=== PATIENT | female | born 1995 | race Hispanic/Latino ===

== ENCOUNTER 2023-08-28 21:50 | Inpatient (IN) | payer OTHER ==
[~2023-08-28] VITALS: Ht 162.6 cm; Wt 85.8 kg
[2023-08-28 22:13] VITALS: BP 119/84
[2023-08-28] MEDS ORDERED: PRENTAB9 PO (23:06)
[2023-08-28] MEDS ORDERED: TUMS500C PO (23:07)
[2023-08-28] MEDS ORDERED: HOME MED LIST COMPLETE! XX SCH (23:10)
[2023-08-28] MEDS ORDERED: OXYTOCIN DRIP 30 UNITS in IV 1 EA IV PRN ×4 (23:20)
[2023-08-28] MEDS ORDERED: METHYLERGONOVINE MALEATE 0.2MG/ML 1ML VIAL IM PRN (23:20)
[2023-08-28] MEDS ORDERED: TRANEXAMIC ACID INJection 1,000 MG in NS 100 ML IV PRN (23:20)
[2023-08-28] MEDS ORDERED: CARBOPROST TROMETHAMINE 250 MCG/ML AMP IM PRN (23:20)
[2023-08-28] MEDS ORDERED: LIDOCAINE 1% MDV 20ML VIAL INFIL PRN (23:20)
[2023-08-29] VITALS (33 sets, daily range): BP systolic 107–145; BP diastolic 60–95
[2023-08-29] MEDS ORDERED: miSOPROStol 50MCG 1/2 TABLET PO SCH
[2023-08-29 00:21] LABS: HEMATOCRIT 38.8 % (36.0-47.0); HEMOGLOBIN 12.8 g/dl (12.0-15.5); MEAN CORPUSCULAR HEMOGLOBIN 28.6 pg (27.0-33.0); MEAN CORPUSCULAR VOLUME 86.8 fl (80.0-96.0); PLATELET COUNT, AUTOMATED 267 10^3/uL (150-450); RED BLOOD COUNT 4.47 10^6/uL (4.00-5.40); WHITE BLOOD COUNT 6.6 10^3/uL (4.0-10.0)
[2023-08-29] MEDS: LR 1,000 ML IV SCH ×3 (00:52→14:22)
[2023-08-29] MEDS ORDERED: CALCIUM CARBONATE 500 MG CHEW U/D PO PRN (02:05)
[2023-08-29] MEDS ORDERED: OXYTOCIN DRIP 30 UNITS in IV 1 EA IV SCH (08:00)
[2023-08-29] MEDS ORDERED: ONDANSETRON 4MG 2ML VIAL IV PRN (13:35)
[2023-08-29] MEDS ORDERED: LR 500 ML IV PRN (13:35)
[2023-08-29] MEDS ORDERED: FENTANYL 2MCG/ML ROPIVACAINE 0.2% IN 0.9% NACL 100ML IVBAG As Ordered ONE (13:35)
[2023-08-29] MEDS ORDERED: ePHEDrine SULFATE 25 MG/5 ML(5MG/ML) SYRINGE IVP PRN (13:35)
[2023-08-29] MEDS ORDERED: FENTANYL/ROPIVACAINE/NACL BAG 100 ML EPIDURAL SCH (13:35)
[2023-08-29] MEDS ORDERED: diphenhydrAMINE 50MG/ML VIAL IV PRN (13:35)
[2023-08-29] MEDS ORDERED: NALOXONE INJ 0.4MG/1ML VIAL IV PRN (13:35)
[2023-08-29] MEDS ORDERED: EPIDURAL/PCA KEYS XX PRN (13:35)
[2023-08-29 18:49] LABS: CORD GAS ABE A -4.1; CORD GAS HCO3 A 23.2 MMOL/L; CORD GAS O2 SAT A 60.5 %; CORD GAS PCO2 A 50.8 mmHg; CORD GAS PH A 7.277 UNITS; CORD GAS PO2 A 29.1 mmHg; CORD GAS SBC A 20.2 MMOL/L; CORD GAS TCO2 A 24.7 MMOL/L
[2023-08-29] MEDS ORDERED: ANUSOL HC CREAM 30GM TOP PRN (18:50)
[2023-08-29] MEDS ORDERED: METHYLERGONOVINE MALEATE 0.2 MG TAB PO PRN (18:50)
[2023-08-29] MEDS ORDERED: RHOGAM 300MCG (1500IU) INJ IM SCH (18:50)
[2023-08-29] MEDS ORDERED: MOM 30ML SUSPENSION UDC PO PRN (18:50)
[2023-08-29] MEDS ORDERED: DIBUCAINE 1% OINTMENT 30GM TOP PRN (18:50)
[2023-08-29 18:51] LABS: CORD GAS HCO3 V 19.5 MMOL/L; CORD GAS PCO2 V 34.9 mmHg; CORD GAS PH V 7.365 UNITS; CORD GAS PO2 V 47.8 mmHg; CORD GAS SBC V 20.3 MMOL/L; CORD GAS TCO2 V 20.6 MMOL/L
[2023-08-29] MEDS: DOCUSATE SODIUM 100MG CAPSULE PO SCH (22:00)
[2023-08-29] MEDS: IBUPROFEN 800 MG TAB PO PRN (23:10)
[2023-08-30] MEDS: ACETAMINOPHEN 500 MG TAB PO PRN ×2 (02:28→16:26)
[2023-08-30 05:55] VITALS: BP 106/58
[2023-08-30] MEDS: IBUPROFEN 800 MG TAB PO PRN ×2 (07:44→21:51)
[2023-08-30] MEDS: PRENATAL VITAMINS CHEWABLE TABLET PO SCH (07:44)
[2023-08-30] MEDS: DOCUSATE SODIUM 100MG CAPSULE PO SCH ×2 (07:44→21:50)
[2023-08-30 17:47] VITALS: BP 115/74; O2SAT 98
[2023-08-31 06:00] VITALS: BP 104/61
[2023-08-31] MEDS: DOCUSATE SODIUM 100MG CAPSULE PO SCH (08:51)
[2023-08-31] MEDS: PRENATAL VITAMINS CHEWABLE TABLET PO SCH (08:51)
== END 2023-08-31 12:20 | disposition home or self-care (01) | DRG 807 ==
LOC: M LDI 21:50 → M OBS 08-29 23:47
PROVIDERS: ADMIT Obstetrics & Gynecology; ATTEND Obstetrics & Gynecology
PROC: 3E033VJ Introduction of Other Hormone into Peripheral Vein, Percutaneous Approach (ICD-10-PCS; 2023-08-28)
PROC: 10E0XZZ Delivery of Products of Conception, External Approach (ICD-10-PCS; principal; 2023-08-29)
PROC: 0KQM0ZZ Repair Perineum Muscle, Open Approach (ICD-10-PCS; 2023-08-29)
DX: O48.0 Post-term pregnancy (principal); Z37.0 Single live birth; Z3A.41 41 weeks gestation of pregnancy; O70.1 Second degree perineal laceration during delivery; O69.82X0 Labor and delivery complicated by other cord entanglement, without compression, not applicable or unspecified

== ENCOUNTER → 2024-05-08 | Day surgery (SDC) | payer OTHER ==
[~2024-05-08] VITALS: Ht 162.6 cm; Wt 73.4 kg
[~2024-05-08] MED LIST: LR 1,000 ML IV SCH; PRENTAB9 PO; TUMS500C PO
[2024-05-08 12:26] VITALS: BP 124/89; TEMP 97.2; O2SAT 97
== END | disposition home or self-care (01) ==
LOC: M SDC 11:17
PROVIDERS: ATTEND Obstetrics & Gynecology
DX: N93.9 Abnormal uterine and vaginal bleeding, unspecified (principal); Z53.8 Procedure and treatment not carried out for other reasons

== ENCOUNTER 2024-05-17 07:09 | Day surgery (SDC) | payer OTHER ==
[~2024-05-17] VITALS: Ht 162.6 cm; Wt 73.8 kg
[~2024-05-17 07:09] MED LIST changes: -LR 1,000 ML IV SCH
[2024-05-17] MEDS ORDERED: LR 1,000 ML IV SCH ×2 (07:15→09:10)
[2024-05-17] MEDS ORDERED: METOCLOPRAMIDE INJ 10MG/2ML VIAL As Ordered ONE (08:49)
[2024-05-17] MEDS ORDERED: MIDAZOLAM INJ 2MG/2ML VIAL As Ordered ONE (08:49)
[2024-05-17] MEDS ORDERED: fentaNYL 100 MCG/2 ML INJECTION As Ordered ONE (08:49)
[2024-05-17] MEDS ORDERED: ACETAMINOPHEN 1000MG 100ML IV BAG As Ordered ONE (08:49)
[2024-05-17] MEDS ORDERED: ONDANSETRON 4MG 2ML VIAL As Ordered ONE (08:49)
[2024-05-17] MEDS ORDERED: LIDOCAINE 2% 100MG/5ML SDV (FOR ANES.) As Ordered ONE (08:49)
[2024-05-17] MEDS ORDERED: KETOROLAC 60MG 2ML VIAL As Ordered ONE (08:49)
[2024-05-17] MEDS ORDERED: propofoL 200 MG/20 ML VIAL As Ordered ONE (08:49)
[2024-05-17] MEDS ORDERED: dexmedeTOMIDine (4MCG/ML)200MCG/50ML BTL (PRECEDEX) As Ordered ONE (08:49)
[2024-05-17] MEDS ORDERED: SEVOFLURANE INHAL SOLN 250 ML BTL As Ordered ONE (09:04)
[2024-05-17] MEDS: SILVER NITRATE APPLICATOR (1 = QTY 10) As Ordered ONE (09:06)
[2024-05-17] MEDS: LIDOCAINE 1% SDV 30ML VIAL As Ordered ONE (09:07)
[2024-05-17] MEDS ORDERED: ONDANSETRON 4MG 2ML VIAL IV PRN ×2 (09:10→10:25)
[2024-05-17] MEDS ORDERED: oxyCODONE 5MG TAB PO PRN ×2 (09:10→10:20)
[2024-05-17] MEDS ORDERED: HYDROMORPHONE HCL 0.5 MG/ 0.5 ML SYRINGE IV PRN (09:10)
[2024-05-17] MEDS ORDERED: fentaNYL 100 MCG/2 ML INJECTION IV PRN (09:10)
[2024-05-17] MEDS ORDERED: PHENYLephrine 500MCG 5ML (100MCG/ML) SYRINGE As Ordered ONE (09:13)
[2024-05-17 10:06] VITALS: BP 130/76; TEMP 97.6; O2SAT 98
[2024-05-17] MEDS ORDERED: ACETAMINOPHEN 500 MG TAB PO PRN (10:20)
[2024-05-17] MEDS ORDERED: PROMETHAZINE 25MG/ML 1ML VIAL IV PRN (10:20)
[2024-05-17] MEDS ORDERED: METOCLOPRAMIDE INJ 10MG/2ML VIAL IV PRN (10:20)
[2024-05-17] MEDS ORDERED: diphenhydrAMINE 25MG CAP PO PRN (10:25)
== END 2024-05-17 11:20 | disposition home or self-care (01) ==
LOC: M SDC 07:09
PROVIDERS: ATTEND Obstetrics & Gynecology
DX: N84.0 Polyp of corpus uteri (principal); N93.9 Abnormal uterine and vaginal bleeding, unspecified
CPT/HCPCS: 36415; 58558; 81025; 86850; 86900; 86901; 88305; J0131; J1100; J1885; J2250; J2371; J2405; J2765; J3010